=== PATIENT | female | born 1990 | race Two or more races ===

== ENCOUNTER 2024-10-14 13:24 | Emergency (ER) | payer OTHER ==
[~2024-10-14] VITALS: Ht 177.8 cm; Wt 104.3 kg
[2024-10-14 13:48] VITALS: BP 126/80; O2SAT 99
[2024-10-14] MEDS ORDERED: METHYLPREDNISOLONE SOD SUCC 125 MG VIAL IV ONE (15:00)
[2024-10-14] MEDS ORDERED: GUAIFENESIN/DEXTROMETHORPHAN 10ML BLIST.PACK PO ONE (15:00)
[2024-10-14] MEDS ORDERED: ACETAMINOPHEN 500 MG GEL..CAP PO ONE (15:15)
[2024-10-14] MEDS ORDERED: IPRATROPIUM/ALBUTEROL SULFATE 3 ML AMPUL.NEB IH SCH (15:15)
[2024-10-14 15:35] LABS: HEMOGLOBIN 13.4 g/dL (12.0-15.00); MEAN CELL VOLUME 79.4 fL (80.00-100.00); MEAN CORPUSCULAR HEMOGLOBIN 25.4 pg (27.00-32.0); PLATELET COUNT 317 K/uL (150-450); RED BLOOD COUNT 5.29 M/uL (4.00-6.00); RED CELL DISTRIBUTION WIDTH 13.2 % (11.5-14.5)
[2024-10-14 15:51] LABS: CALCIUM 9.9 mg/dL (8.5-10.1); CREATININE SERUM 0.93 mg/dL (0.55-1.02); GFR 69.86; POTASSIUM 4.39 mEq/L (3.5-5.1)
[2024-10-14] MEDS ORDERED: IPRATROPIU0.2 MG/1 M IH (17:29)
[2024-10-14] MEDS ORDERED: ZITHROMAX500 MG PO (17:29)
[2024-10-14] MEDS ORDERED: MEDROLPACK PO (17:29)
[2024-10-14] MEDS ORDERED: ALBUTEROL1.25 MG/3 IH (17:29)
[2024-10-14] MEDS ORDERED: TUSSIN DM LIQU118 ML PO (17:29)
== END 2024-10-14 17:56 | disposition home or self-care (01) ==
LOC: ER 13:26
PROVIDERS: General Practice
DX: J06.9 Acute upper respiratory infection, unspecified (principal); Z20.822 Contact with and (suspected) exposure to COVID-19